=== PATIENT | female | born 2000 | race Caucasian/White ===

== ENCOUNTER 2022-11-25 09:59 | Emergency (ER) | payer OTHER ==
[2022-11-25] MEDS ORDERED: ACETAMINOPHEN 500 MG TAB ONE (10:22)
[2022-11-25] MEDS ORDERED: IBUPROFEN 200 MG TAB PO ONE (10:23)
[2022-11-25] MEDS ORDERED: IBUPROFEN 400 MG TAB ONE (10:23)
[2022-11-25] MEDS ORDERED: ONDANSETRON 4 MG (ODT) TAB ONE (10:23)
[2022-11-25 10:36] LABS: Urine Blood Negative (Negative); Urine Glucose Negative (Negative); Urine Protein Trace (Negative); Urine Specific Gravity 1.025 (1.005-1.030); Urine pH 5.5 (5.0-7.0)
[2022-11-25 10:49] LABS: Urine Specific Gravity/Preg 1.025 (1.005-1.030)
[2022-11-25 11:16] LABS: Urine Bacteria <20 /HPF (<20); Urine Mucus 1+ /HPF (None Seen); Urine RBC <5 /HPF (None Seen); Urine WBC Clump Rare /HPF (None Seen)
--- NOTE | 2022-11-25 11:35 | EDPHYS ---
Physician Documentation [facility] Name: My Krueger Age: 22 yrs Sex: Female : 2000 Arrival Date: 11/25/2022 Time: 10:00 Bed 12 Private MD: ED Physician Edward Banks HPI: 11/25 10:07 This 22 yrs old Female presents to ER via Unassigned with complaints of Sore bs3 Throat, Fever. 10:07 22-year-old history of urinary retention after the of her child otherwise no past bs3 medical history presents with cough fever body aches and sore throat throat is worse with swallowing better without she is tolerating liquid without any difficulty her daughter is sick with a viral illness but does not have a fever fevers ongoing for 2 days despite [id number]-[id number] medicines. Historical: - Allergies: 10:10 "strong antibiotic starts with X"; ll1 - PMHx: 10:10 None; ll1 - PSHx: 10:10 None; ll1 - Immunization history:: Client reports receiving the 2nd dose of the Covid vaccine. - Social history:: Smoking status: Patient reports the use of cigarette tobacco products, smokes one-half pack cigarettes per day. ROS: 10:07 Constitutional: Positive for fevers and chills bs3 10:07 All other systems are negative. Exam: 10:07 Constitutional: This is a well developed, well nourished patient who is awake, alert, bs3 and in no acute distress. Head/Face: Normocephalic, atraumatic. Eyes: Pupils equal round and reactive to light, extra-ocular motions intact. Lids and lashes normal. ENT: No trismus, moist mucosal membranes, mild posterior pharyngeal erythema slight uvular enlargement no [employer] no drooling Neck: Trachea midline, no thyromegaly, no neck stiffness Chest/axilla: Normal chest wall appearance and motion. Nontender with no deformity. No lesions are appreciated. Cardiovascular: tachycardic, no murmur Respiratory: Lungs have equal breath sounds bilaterally, clear to auscultation, no respiratory distress Abdomen/GI: Soft, non-tender, no rebound or guarding Skin: Warm, dry with normal turgor. Normal color with no rashes, no lesions, and no evidence of cellulitis. MS/ Extremity: Pulses equal, no cyanosis. Neurovascular intact. Full, normal range of motion. Neuro: Awake and alert, GCS 15, oriented to person, place, time, and situation. Cranial nerves II-XII grossly intact. Motor strength 5/5 in all extremities. Sensory grossly intact. Vital Signs: 10:10 BP 131 / 82; Pulse 124; Resp 19; Temp 101.8; Pulse Ox 100% ; Weight 75.3 kg; Height 5 ll1 ft. 1 in. ; Pain 10/10; 11:31 BP 99 / 68; Pulse 107; Resp 17; Temp 98.9; Pulse Ox 99% ; Pain 7/10; jl7 10:10 Body Mass Index 31.37 (75.30 kg, 154.94 cm) ll1 10:10 Pain Scale: Adult ll1 11:31 Pain Scale: Adult jl7 MDM: 10:01 Patient medically screened. bs3 10:07 Differential diagnosis: viral syndrome possible flu or covid possible strep, less bs3 likely mono, given hx of uti with and body aches, will check urine. Data reviewed: vital signs, nurses notes. 10:42 ED course: Nitrate were positive but patient without urinary symptoms therefore I am bs3 not suspecting sepsis. 10:53 ED course: Reassessed, sleeping resting comfortably heart rate improved to 104. bs3 11:29 ED course: Urine with nitrite positive but all other test negative likely false bs3 positive nitrate in the setting of [id number] medications she has no urinary symptoms therefore it is unlikely to be urinary tract infection. 11/25 10:07 Order name: Urine Dipstick-Ancillary (obtain specimen); Complete Time: 10:24 bs3 11/25 10:07 Order name: Urine Test (obtain specimen); Complete Time: 10:25 bs3 11/25 10:07 Order name: Strep; Complete Time: 11:27 bs3 11/25 10:38 Order name: Urine --Ancillary (enter results); Complete Time: 11:27 kj1 11/25 10:36 Order name: Urine Dipstick-Ancillary; Complete Time: 10:38 EDMS 11/25 11:04 Order name: Urine Microscopic Only; Complete Time: 11:27 EDMS 11/25 11:16 Order name: Throat Culture EDMS Administered Medications: 10:24 Drug: Acetaminophen PO 1000 mg Route: PO; ll1 11:32 Follow up: Response: No adverse reaction; Temperature is decreased jl7 10:24 Drug: Ibuprofen PO 600 mg Route: PO; ll1 11:31 Follow up: Response: No adverse reaction; Temperature is decreased jl7 10:24 Drug: Ondansetron PO 8 mg Route: PO; ll1 11:31 Follow up: Response: No adverse reaction; Nausea is decreased jl7 Disposition Summary: 11/25/22 11:34 Discharge Ordered Location: Home bs3 Problem: new bs3 Symptoms: have improved bs3 Condition: Stable bs3 Diagnosis - Acute upper respiratory infection, unspecified bs3 Followup: bs3 - With: Private Physician - When: 2 - 3 days - Reason: Re-evaluation by your physician Forms: - Medication Reconciliation Form bs3 - Thank You Letter bs3 - Antibiotic Education bs3 - Prescription Opioid Use bs3 Signatures: Dispatcher [employer] EDRenea Cedillo RN RN ll1 Edward Banks MD MD bs3 Gloria Child RN jl7 Corrections: (The following items were deleted from the chart) 10:15 10:07 Constitutional: This is a well developed, well nourished patient who is awake, bs3 alert, and in no acute distress. Head/Face: Normocephalic, atraumatic. Eyes: Pupils equal round and reactive to light, extra-ocular motions intact. Lids and lashes normal. ENT: No trismus, moist mucosal membranes, mild posterior pharyngeal erythema slight uvular enlargement no [employer] no drooling Neck: Trachea midline, no thyromegaly, no neck stiffness Chest/axilla: Normal chest wall appearance and motion. Nontender with no deformity. No lesions are appreciated. Cardiovascular: Regular rate and rhythm with a normal S1 and S2. symmetric pulses in upper extremities Respiratory: Lungs have equal breath sounds bilaterally, clear to auscultation, no respiratory distress Abdomen/GI: Soft, non-tender, no rebound or guarding Skin: Warm, dry with normal turgor. Normal color with no rashes, no lesions, and no evidence of cellulitis. MS/ Extremity: Pulses equal, no cyanosis. Neurovascular intact. Full, normal range of motion. Neuro: Awake and alert, GCS 15, oriented to person, place, time, and situation. Cranial nerves II-XII grossly intact. Motor strength 5/5 in all extremities. Sensory grossly intact. bs3 11:04 10:39 Urinalysis+U.LAB.BRZ ordered. EDMS EDMS
--- NOTE | 2022-11-25 11:35 | ER ---
Nurse's Notes [facility] Name: My Krueger Age: 22 yrs Sex: Female : 2000 Arrival Date: 11/25/2022 Time: 10:00 Bed 12 Private MD: Diagnosis: Acute upper respiratory infection, unspecified Presentation: 11/25 10:10 Chief complaint: Patient states: Sore throat and fever for 2 days. + N/V. Coronavirus ll1 screen: Vaccine status: Patient reports receiving the 2nd dose of the covid vaccine. Client denies travel out of the [place] in the last 14 days. fatigue, fever, headache, muscle pain, nausea, sore throat, vomiting. Client presents with at least one sign or symptom that may indicate coronavirus-19. Standard/surgical mask placed on the client. Ebola Screen: Patient denies travel to an Ebola-affected area in the 21 days before illness onset. Initial Sepsis Screen: Does the patient meet any 2 criteria? No. Patient's initial sepsis screen is negative. Does the patient have a suspected source of infection? Yes: Other: sore throat. Risk Assessment: Do you want to hurt yourself or someone else? Patient reports no desire to harm self or others. Onset of symptoms was November 24, 2022. 10:10 Method Of Arrival: Ambulatory ll1 10:10 Acuity: FLORIN 3 ll1 Triage Assessment: 10:12 General: Appears uncomfortable, ill, Behavior is cooperative, appropriate for age. ll1 Pain: Complains of pain in back Quality of pain is described as aching. EENT: Reports pain when swallowing. Neuro: Reports headache weakness. Respiratory: Reports cough that is. GI: Reports nausea, vomiting. Historical: - Allergies: 10:10 "strong antibiotic starts with X"; ll1 - PMHx: 10:10 None; ll1 - PSHx: 10:10 None; ll1 - Immunization history:: Client reports receiving the 2nd dose of the Covid vaccine. - Social history:: Smoking status: Patient reports the use of cigarette tobacco products, smokes one-half pack cigarettes per day. Screenin:31 [facility] ED Fall Risk Assessment (Adult) History of falling in the last 3 months, jl7 including since admission No falls in past 3 months (0 pts). Abuse screen: Denies threats or abuse. Denies injuries from another. Nutritional screening: No deficits noted. Tuberculosis screening: No symptoms or risk factors identified. Assessment: 11:33 Reassessment: Patient appears in no apparent distress at this time. Patient and/or jl7 family updated on plan of care and expected duration. Pain level reassessed. Patient is alert, oriented x 3, equal unlabored respirations, skin warm/dry/pink. Patient states symptoms have improved. Vital Signs: 10:10 BP 131 / 82; Pulse 124; Resp 19; Temp 101.8; Pulse Ox 100% ; Weight 75.3 kg; Height 5 ll1 ft. 1 in. ; Pain 10/10; 11:31 BP 99 / 68; Pulse 107; Resp 17; Temp 98.9; Pulse Ox 99% ; Pain 7/10; jl7 10:10 Body Mass Index 31.37 (75.30 kg, 154.94 cm) ll1 10:10 Pain Scale: Adult ll1 11:31 Pain Scale: Adult jl7 ED Course: 10:00 Patient arrived in ED. am2 10:01 Edward Banks MD is Attending Physician. bs3 10:12 Triage completed. ll1 10:13 Arm band placed on Patient placed in an exam room, on a stretcher. ll1 10:21 Strep Sent. mm9 10:21 Strep swab sent to lab. mm9 11:30 Gloria Child RN is Primary Nurse. jl7 11:31 Patient has correct armband on for positive identification. Bed in low position. Call jl7 light in reach. Side rails up X 1. Pulse ox on. NIBP on. 11:31 No provider procedures requiring assistance completed. Patient did not have IV access jl7 during this emergency room visit. Administered Medications: 10:24 Drug: Acetaminophen PO 1000 mg Route: PO; ll1 11:32 Follow up: Response: No adverse reaction; Temperature is decreased jl7 10:24 Drug: Ibuprofen PO 600 mg Route: PO; ll1 11:31 Follow up: Response: No adverse reaction; Temperature is decreased jl7 10:24 Drug: Ondansetron PO 8 mg Route: PO; ll1 11:31 Follow up: Response: No adverse reaction; Nausea is decreased jl7 Outcome: 11:34 Discharge ordered by . bs3 Signatures: Gloria Child RN RN jl7 Yisel Portillo Lynsay, RASHIDA RN ll1 Edward Banks MD MD bs3 Tracie Lema mm9
[2022-11-25 12:38] VITALS: BP 99/68; TEMP 98.9; O2SAT 99
== END 2022-11-25 11:41 | disposition home or self-care (01) ==
LOC: ER 09:59
DX: J06.9 Acute upper respiratory infection, unspecified (principal); F17.210 Nicotine dependence, cigarettes, uncomplicated
CPT/HCPCS: 87070; 81025; 87081; 99283; Q0162; 81003; 81015